=== PATIENT | male | born 1965 | race Caucasian/White ===

== ENCOUNTER 2020-12-13 20:32 | Emergency (ER) | payer SELFPAY ==
[~2020-12-13] VITALS: Ht 177.8 cm; Wt 65.9 kg
[2020-12-13] MEDS ORDERED: FAMOTIDINE 20MG/2ML IV (PEPCID) IV STA (20:54)
[2020-12-13] MEDS ORDERED: NS IV 1000 ML 1,000 ML IV SCH (21:00)
[2020-12-13] MEDS ORDERED: SUCRALFATE 1 GM (CARAFATE) TAB PO ONE (21:00)
[2020-12-13 21:09] LABS: BASOPHILS # (AUTO) 0.1 10^3/uL (0.0-0.1); BASOPHILS % (AUTO) 1 % (0-10); EOSINOPHILS # (AUTO) 0.1 10^3/uL (0.0-0.3); EOSINOPHILS % (AUTO) 2 % (0-10); HEMATOCRIT 44 % (40-54); HEMOGLOBIN 14.5 g/dL (13.3-17.7); LYMPHOCYTES # (AUTO) 2.1 10^3/uL (1.0-4.0); LYMPHOCYTES % (AUTO) 25 % (12-44); MEAN CORPUSCULAR HEMOGLOBIN 30 pg (25-34); MEAN CORPUSCULAR HGB CONC 33 g/dL (32-36); MEAN CORPUSCULAR VOLUME 92 fL (80-99); MEAN PLATELET VOLUME 8.9 fL (9.0-12.2); MONOCYTES # (AUTO) 0.7 10^3/uL (0.0-1.0); MONOCYTES % (AUTO) 9 % (0-12); NEUTROPHILS # (AUTO) 5.3 10^3/uL (1.8-7.8); NEUTROPHILS % (AUTO) 63 % (42-75); PLATELET COUNT 435 10^3/uL (130-400); WHITE BLOOD COUNT 8.4 10^3/uL (4.3-11.0)
[2020-12-13 21:29] LABS: ALANINE AMINOTRANSFERASE 17 U/L (0-55); ALBUMIN 3.9 GM/DL (3.2-4.5); ALKALINE PHOSPHATASE 100 U/L (40-136); AMYLASE 42 U/L (25-125); BILIRUBIN,TOTAL 0.4 MG/DL (0.1-1.0); BUN/CREATININE RATIO 14; CALCIUM 8.7 MG/DL (8.5-10.1); CARBON DIOXIDE 28 MMOL/L (21-32); CHLORIDE 102 MMOL/L (98-107); CREATININE SERUM 0.95 MG/DL (0.60-1.30); GFR ESTIMATED > 60; GLUCOSE 121 MG/DL (70-105); LIPASE 20 U/L (8-78); POTASSIUM 3.8 MMOL/L (3.6-5.0); SODIUM 139 MMOL/L (135-145); TOTAL PROTEIN 6.7 GM/DL (6.4-8.2)
--- NOTE | 2020-12-13 21:42 | Diagnostic Imaging Report ---
PROCEDURE: CT abdomen and pelvis without contrast. TECHNIQUE: Multiple contiguous axial images were obtained through the abdomen and pelvis without the use of intravenous contrast. Auto Exposure Controls were utilized during the CT exam to meet ALARA standards for radiation dose reduction. DATE: December 13, 2020. COMPARISON: None. INDICATION: 55-year-old male, rectal bleeding. Abdominal distention. FINDINGS: There are limitations for evaluation of the abdominal organs, neoplastic processes, abscess, and limited evaluation of the vasculature relating to the lack of intravenous contrast. The visualized portions of the lung bases are grossly clear. The heart is not enlarged. There is no pericardial effusion. The liver is unremarkable in size and contour. There is a low-attenuation lesion in the left lobe of the liver on axial image 14 measuring 9 mm in size which is too small to characterize. The gallbladder is not seen and may be surgically absent or contracted. There is no identified biliary ductal dilation. The main pancreatic duct is not grossly dilated. Limited noncontrast evaluation of the pancreatic parenchyma is unremarkable. The spleen is normal in size. The adrenal glands are unremarkable. There is a low-attenuation lesion in the right kidney measuring 11 mm in size compatible with a benign cyst on axial image 27. The urinary collecting systems are not distended. There is no identified renal or ureteral stone. The urinary bladder is grossly unremarkable in appearance. The intestinal tract is not distended. There is no evidence of acute appendicitis. There is no free intraperineal air. There is no drainable fluid collection. There are atherosclerotic calcifications. There is no identified abnormally enlarged lymph node in the abdomen or pelvis meeting CT size criteria for adenopathy. There is no identified acute bony abnormality. IMPRESSION: CT abdomen and pelvis: 1. No identified acute abnormality in the abdomen or pelvis. Dictated by: Dictated on workstation # [id number]
[2020-12-13] MEDS ORDERED: CEPH500T PO (21:52)
[2020-12-13] MEDS ORDERED: SUCR1TAB36 PO (21:52)
[2020-12-13] MEDS ORDERED: PANT20TA2 PO (21:52)
--- NOTE | 2020-12-13 21:52 | ED GI ---
General Chief Complaint: Rect Problems Stated Complaint: RECTAL BLEEDING Nursing Triage Note: AMBULATES TO ROOM #5 WITH C/O RECTAL BLEEDING THAT BEGAN ON THIS DAY. DESCRIBES STOOL BRIGHT RED WITH BLOOD CLOTS. REPORTS >5 EPISODES THROUGHOUT THIS DAY. REPORTS HE IS PRESCRIBED CLINDAMYCIN ABX. DENIES PAIN, NAUSEA, OR VOMITING. Sepsis Screen: No Definite Risk History of Present Illness Date Seen by Provider: Dec 13, 2020 Time Seen by Provider: 20:50 Initial Comments 55-year-old male presents for rectal bleeding. He had some diarrhea over the last few days and since then has been noticing rectal bleeding today with approximately 5 stools. The blood is bright red. He has never had a colonoscopy or rectal/GI problems in the past. He has been treated for skin ulcers with clindamycin, they have been slowly increasing the dose. He admits to using methamphetamines. He denies any other chronic health problems. He reports some mild GERD symptoms but no abdominal pain, nausea, vomiting, or diarrhea. Timing/Duration: 24 Hours Severity/Quality: Mild Associated Symptoms: Denies Symptoms Allergies and Home Medications Allergies Coded Allergies: No Known Drug Allergies (Unverified , 12/13/20) Patient Home Medication List Home Medication List Reviewed: Yes Review of Systems Review of Systems Constitutional: no symptoms reported, see HPI Gastrointestinal: See HPI; Denies Abdominal Pain, Denies Constipated; Diarrhea; Denies Nausea, Denies Poor Appetite, Denies Poor Fluid Intake; Rectal Bleeding; Denies Vomiting All Other Systems Reviewed Negative Unless Noted: Yes Past Mcqzryw-Bilzxw-Ijqord Hx Past Med/Social Hx: Reviewed Nursing Past Med/Soc Hx Patient Social History Alcohol Use: Rarely Uses Number of Drinks Today: 0 Drug of Choice: THC, METH (SMOKE & SNORT) Smoking Status: Current Everyday Smoker Type Used: Cigarettes 2nd Hand Smoke Exposure: Yes Recent Infectious Disease Expo: No Recent Hopitalizations: No Seasonal Allergies Seasonal Allergies: No Past Medical History Surgeries: No Respiratory: No Cardiac: No Neurological: No Genitourinary: No Gastrointestinal: No Musculoskeletal: No HEENT: No Cancer: No Psychosocial: No Physical Exam Vital Signs Vital Signs - First Documented 12/13/20 20:46 Temp 36.0 Pulse 103 Resp 18 B/P (MAP) 162/116 (131) Pulse Ox 97 O2 Delivery Room Air Capillary Refill : Less Than 3 Seconds Height/Weight/BMI Height: '" Weight: lbs. oz. kg; 20.00 BMI Method: General Appearance: WD/WN, no apparent distress HEENT: PERRL/EOMI, normal ENT inspection, TMs normal, pharynx normal Neck: non-tender, full range of motion, supple, normal inspection Respiratory: chest non-tender, lungs clear, normal breath sounds Cardiovascular: normal peripheral pulses, regular rate, rhythm Gastrointestinal: normal bowel sounds, non tender, soft; No distended, No guarding, No rebound, No tenderness, No mass Genital/Rectal: normal genital exam, normal rectal exam, heme positive stool; No tenderness Extremities: normal range of motion, non-tender, normal inspection, no pedal edema, no calf tenderness Neurologic/Psychiatric: no motor/sensory deficits, alert, normal mood/affect, oriented x 3 Skin: normal color, warm/dry (small pustules to legs, no abscesses, induration, drainage or erythema. Patient reports his brother has them, also and uses Meth. They live together. ), other Progress/Results/Core Measures Results/Orders Lab Results Laboratory Tests Test 12/13/20 21:00 Range/Units White Blood Count 8.4 4.3-11.0 10^3/uL Red Blood Count 4.83 4.30-5.52 10^6/uL Hemoglobin 14.5 13.3-17.7 g/dL Hematocrit 44 40-54 % Mean Corpuscular Volume 92 80-99 fL Mean Corpuscular Hemoglobin 30 25-34 pg Mean Corpuscular Hemoglobin Concent 33 32-36 g/dL Red Cell Distribution Width 13.7 10.0-14.5 % Platelet Count 435 H 130-400 10^3/uL Mean Platelet Volume 8.9 L 9.0-12.2 fL Immature Granulocyte % (Auto) 0 % Neutrophils (%) (Auto) 63 42-75 % Lymphocytes (%) (Auto) 25 12-44 % Monocytes (%) (Auto) 9 0-12 % Eosinophils (%) (Auto) 2 0-10 % Basophils (%) (Auto) 1 0-10 % Neutrophils # (Auto) 5.3 1.8-7.8 10^3/uL Lymphocytes # (Auto) 2.1 1.0-4.0 10^3/uL Monocytes # (Auto) 0.7 0.0-1.0 10^3/uL Eosinophils # (Auto) 0.1 0.0-0.3 10^3/uL Basophils # (Auto) 0.1 0.0-0.1 10^3/uL Immature Granulocyte # (Auto) 0.0 0.0-0.1 10^3/uL Sodium Level 139 135-145 MMOL/L Potassium Level 3.8 3.6-5.0 MMOL/L Chloride Level 102 98-107 MMOL/L Carbon Dioxide Level 28 21-32 MMOL/L Anion Gap 9 5-14 MMOL/L Blood Urea Nitrogen 13 7-18 MG/DL Creatinine 0.95 0.60-1.30 MG/DL Estimat Glomerular Filtration Rate > 60 BUN/Creatinine Ratio 14 Glucose Level 121 H 70-105 MG/DL Calcium Level 8.7 8.5-10.1 MG/DL Corrected Calcium 8.8 8.5-10.1 MG/DL Total Bilirubin 0.4 0.1-1.0 MG/DL Aspartate Amino Transf (AST/SGOT) 15 5-34 U/L Alanine Aminotransferase (ALT/SGPT) 17 0-55 U/L Alkaline Phosphatase 100 40-136 U/L Total Protein 6.7 6.4-8.2 GM/DL Albumin 3.9 3.2-4.5 GM/DL Amylase Level 42 25-125 U/L Lipase 20 8-78 U/L My Orders Orders - MELA HERNANDEZ Comprehensive Metabolic Panel (12/13/20 20:54) Lipase (12/13/20 20:54) Amylase (12/13/20 20:54) Ua Culture If Indicated (12/13/20 20:54) Cbc With Automated Diff (12/13/20 20:54) Ct Abdomen/Pelvis Wo (12/13/20 20:54) Ed Iv/Invasive Line Start (12/13/20 20:54) Ns Iv 1000 Ml (Sodium Chloride 0.9%) (12/13/20 21:00) Famotidine Injection (Pepcid Injection) (12/13/20 20:54) Sucralfate Tablet (Carafate Tablet) (12/13/20 21:00) Medications Given in ED Current Medications Medications Dose Ordered Sig/Manoj Route Start Time Stop Time Status Last Admin Dose Admin Sucralfate 1 gm ONCE ONCE PO 12/13/20 21:00 12/13/20 21:01 DC 12/13/20 21:20 1 GM Vital Signs/I&O 12/13/20 20:46 Temp 36.0 Pulse 103 Resp 18 B/P (MAP) 162/116 (131) Pulse Ox 97 O2 Delivery Room Air Blood Pressure Mean: 131 Diagnostic Imaging Diagonstic Imaging: CT Plain Films/CT/US/NM/MRI: abdomen, pelvis Comments NAME: [facility] REC#: [id number] PT STATUS: REG ER : 1965 PHYSICIAN: MELA HERNANDEZ ADMIT DATE: 12/13/20/ER Draft Date of Exam:12/13/20 CT ABDOMEN/PELVIS WO PROCEDURE: CT abdomen and pelvis without contrast. TECHNIQUE: Multiple contiguous axial images were obtained through the abdomen and pelvis without the use of intravenous contrast. Auto Exposure Controls were utilized during the CT exam to meet ALARA standards for radiation dose reduction. DATE: December 13, 2020. COMPARISON: None. INDICATION: 55-year-old male, rectal bleeding. Abdominal distention. FINDINGS: There are limitations for evaluation of the abdominal organs, neoplastic processes, abscess, and limited evaluation of the vasculature relating to the lack of intravenous contrast. The visualized portions of the lung bases are grossly clear. The heart is not enlarged. There is no pericardial effusion. The liver is unremarkable in size and contour. There is a low-attenuation lesion in the left lobe of the liver on axial image 14 measuring 9 mm in size which is too small to characterize. The gallbladder is not seen and may be surgically absent or contracted. There is no identified biliary ductal dilation. The main pancreatic duct is not grossly dilated. Limited noncontrast evaluation of the pancreatic parenchyma is unremarkable. The spleen is normal in size. The adrenal glands are unremarkable. There is a low-attenuation lesion in the right kidney measuring 11 mm in size compatible with a benign cyst on axial image 27. The urinary collecting systems are not distended. There is no identified renal or ureteral stone. The urinary bladder is grossly unremarkable in appearance. The intestinal tract is not distended. There is no evidence of acute appendicitis. There is no free intraperineal air. There is no drainable fluid collection. There are atherosclerotic calcifications. There is no identified abnormally enlarged lymph node in the abdomen or pelvis meeting CT size criteria for adenopathy. There is no identified acute bony abnormality. IMPRESSION: CT abdomen and pelvis: 1. No identified acute abnormality in the abdomen or pelvis. Dictated on workstation # [id number] Dict: 12/13/202133 Trans: 12/13/202141 [facility] [id number] Interpreted by: JUANITA SHAW MD Electronically signed by: Reviewed: Reviewed by Me Departure Impression Primary Impression: Rectal bleeding Additional Impressions: Gastritis Qualified Codes: K29.01 - Acute gastritis with bleeding Pustular inflammation of skin Disposition: HOME, SELF-CARE Condition: Improved Departure-Patient Inst. Decision time for Depature: 21:45 Referrals: [facility]/FISH MURPHY DO Patient Instructions: Gastritis (DC), Bloody Stools, Adult (DC) Add. Discharge Instructions: Stop taking the clindamycin. Clean wounds with peroxide and apply triple antibiotic ointment. Begin taking the Keflex, Carafate and Protonix as prescribed. Follow-up at [facility]. Eat 1 cup of activity a yogurt daily. Increase water intake. Follow-up with general surgery if rectal bleeding is not improving and for a colonoscopy. Return to the emergency department for new, urgent healthcare needs. All discharge instructions reviewed with patient and/or family. Voiced understanding. Scripts Pantoprazole Sodium (Protonix) 20 Mg Tablet.dr 20 MG PO DAILY, #30 TAB 0 Refills Prov: MELA HERNANDEZP 12/13/20 Cephalexin (Cephalexin) 500 Mg Tablet 500 MG PO TID, #21 TAB 0 Refills Prov: MELA HERNANDEZP 12/13/20 Sucralfate (Carafate) 1 Gm Tablet 1 GM PO BID, #60 TAB 0 Refills Prov: MELA HERNANDEZP 12/13/20 MELA HERNANDEZ Dec 13, 2020 21:52
[2020-12-13 22:18] VITALS: BP 142/102
== END 2020-12-13 22:18 | disposition home or self-care (01) ==
LOC: ER 20:35
DX: K29.01 Acute gastritis with bleeding (principal); L08.9 Local infection of the skin and subcutaneous tissue, unspecified; F17.210 Nicotine dependence, cigarettes, uncomplicated
CPT/HCPCS: 36415; 74176; 80053; 82150; 82274; 83690; 85025